=== PATIENT | female | born 1985 | race Asian ===

== ENCOUNTER 2017-06-12 09:08 | Emergency (ER) | payer OTHER ==
[~2017-06-12] VITALS: Ht 162 cm; Wt 54.1 kg
[~2017-06-12 09:08] MED LIST: NO HOME MEDICATIONS; TAMIFLU 75MG75 MG PO
[2017-06-12 09:09] VITALS: TEMP 98.6
[2017-06-12 10:05] LABS: BASO # 0.1 (0.0-0.2); BASO % 1.1 % (0.0-2.0); EOS # 0.1 (0.0-0.7); EOS % 1.1 % (0-4.0); GRAN # 3.6 (1.4-6.5); GRAN % 58.2 % (42.2-75.2); HEMATOCRIT 39.9 % (37.0-47.0); HEMOGLOBIN 13.7 g/dl (12.5-16.0); LYMPH # 2.1 (1.2-3.4); LYMPH % 34.4 % (20.0-51.0); MEAN CELL VOLUME 94 fl (80.0-100.0); MEAN CORPUSCULAR HEMOGLOBIN 32 pg (27.0-31.0); MEAN CORPUSCULAR HGB CONC 34 g/dl (33.0-37.0); MEAN PLATELET VOLUME 9.1 fl (7.4-10.4); MONO # 0.3 (0.1-0.6); PLATELET COUNT 258 K/mm3 (130-400); RED BLOOD COUNT 4.24 M/mm3 (4.10-5.30); WHITE BLOOD COUNT 6.2 K/mm3 (4.8-10.8)
[2017-06-12 10:18] LABS: ADJUSTED CALCIUM 8.7 mg/dL (8.4-10.2); ALANINE AMINOTRANSFERASE 25 U/L (9-52); ALBUMIN 4.9 gm/dL (3.5-5.0); ALKALINE PHOSPHATASE 40 U/L (50-136); ANION GAP 9 mmol/L (7-16); BLOOD UREA NITROGEN 11 mg/dL (7-17); C-REACTIVE PROTEIN < 0.5 mg/dL (0.0-0.9); CALCIUM 9.4 mg/dL (8.4-10.2); CARBON DIOXIDE 25 mmol/L (22-30); CHLORIDE 103 mmol/L (98-107); CREATININE, serum 0.55 mg/dL (0.52-1.25); GLUCOSE 88 mg/dL (74-106); LIPASE 65 U/L (23-300); SODIUM 136 mmol/L (137-145)
[2017-06-12 10:33] LABS: COLLECTION METHOD CLEAN CATCH
[2017-06-12 10:42] LABS: MUCOUS Present /lpf; PH 5 (5-8); SQUAMOUS EPITHELIAL 0-2 /hpf; URINE APPEARANCE Clear; URINE BACTERIA Rare /hpf; URINE BILIRUBIN Negative (NEGATIVE); URINE BLOOD Negative (NEGATIVE); URINE COLOR Yellow; URINE GLUCOSE Negative (NEGATIVE); URINE KETONE Negative (NEGATIVE); URINE LEUKOCYTE ESTERASE Trace (NEGATIVE); URINE PROTEIN(semi-quant) Negative (NEGATIVE); URINE RBC 0-2 /hpf; URINE UROBILINOGEN Negative (NEGATIVE)
[2017-06-12] MEDS ORDERED: NORCO 325 MG-51 TAB PO (12:07)
[2017-06-12 12:26] VITALS: BP 122/79; PULSE 58
== END 2017-06-12 12:26 | disposition home or self-care (01) ==
LOC: COL.ER 09:08
PROVIDERS: Nurse Practitioner
DX: K80.50 Calculus of bile duct without cholangitis or cholecystitis without obstruction (principal); Z32.02 Encounter for pregnancy test, result negative
CPT/HCPCS: J1885; J7030

== ENCOUNTER → 2017-07-12 | Outpatient (CLI) | payer OTHER ==
[~2017-07-12] MED LIST changes: +NORCO 325 MG-51 TAB PO
== END ==
LOC: COL.RAD 11:54
DX: R10.11 Right upper quadrant pain (principal)
CPT/HCPCS: A9537; J2270